=== PATIENT | female | born 1965 | race Two or more races ===

== ENCOUNTER 2021-03-20 21:24 | Inpatient (IN) | payer MEDICAID, OTHER ==
[~2021-03-20] VITALS: Ht 160 cm; Wt 76.0 kg
[2021-03-20] MEDS ORDERED: NOREPINEPHRINE 8 MG/250ML KIT 250 ML IV ONE (21:46)
[2021-03-20 22:08] LABS: Mean Corpuscular Hemoglobin 31.1 pg (28.0-32.0); Mean Corpuscular Hgb Conc. 32.5 g/dL (32.0-36.0); Mean Corpuscular Volume 95.6 fL (80.0-100.0); Platelet Count (auto) 210 10^3/uL (140-450); Red Blood Cells 4.49 10^6/uL (4.0-5.20); Red Cell Distribution Width 14.2 % (11.8-14.3); White Blood Cell 8.6 10^3/uL (4.4-10.8)
[2021-03-20] MEDS ORDERED: levETIRAcetam 500 MG/5ML INJ IV ONE (22:12)
[2021-03-20] MEDS ORDERED: PROPOFOL 100 ML IV ONE (22:16)
[2021-03-20 22:18] LABS: Band Neutrophils % (manual) 0; Basophils % (manual) 0 (0.0-2.0); Blast Cells 0; Metamyelocytes % 0; Myelocytes % 0; Promyelocytes % 0
[2021-03-20 22:21] LABS: Albumin 3.5 g/dL (3.4-5.0); Calcium 8.8 mg/dL (8.5-10.1); Potassium 3.6 mmol/L (3.5-5.1)
[2021-03-20 22:28] LABS: BUN/Creatinine Ratio 16.2; Bilirubin, Total 0.6 mg/dL (0.2-1.0); Total Protein 7.1 g/dL (6.4-8.2)
[2021-03-20 22:33] LABS: INR 1.07 (0.9-1.15); Partial Thromboplastin Time 25.9 sec (23.0-31.2)
[2021-03-20 22:43] LABS: Eosinophils % (manual) 4 (0-7); Lymphocytes % (manual) 75 (10.0-50.0); Monocytes % (manual) 7 (0-12); Reactive Lymphocytes 5
[2021-03-20 22:57] LABS: Urine WBC None Seen /hpf (0 - 5)
[2021-03-20] MEDS ORDERED: fentaNYL CITRATE 5 ML ONE (23:00)
[2021-03-20] MEDS: PROPOFOL 100 ML IV SCH (23:00)
[2021-03-20] MEDS ORDERED: fentaNYL CITRATE 100 MCG/2 ML VL IV ONE (23:00)
[2021-03-20 23:10] LABS: Urine Bacteria FEW /hpf (None Seen); Urine Blood 2+ /uL (Negative); Urine Mucus FEW (None Seen); Urine Specific Gravity 1.007 (1.001-1.035)
[2021-03-20 23:27] LABS: Alcohol, Urine < 3.0 mg/dL (0-10); Amphetamine Screen, Urine NEGATIVE (NEGATIVE); Barbiturate Scree,Urine NEGATIVE (NEGATIVE); Benzodiazephine Screen, Urine NEGATIVE (NEGATIVE); Cannabinoid Screen, Urine NEGATIVE (NEGATIVE); Cocaine Screen, Urine NEGATIVE (NEGATIVE); Opiate Scree,Urine NEGATIVE (NEGATIVE); Phencyclidine Screen, Urine NEGATIVE (NEGATIVE)
[2021-03-21] VITALS (84 sets, daily range): BP systolic 83–120; BP diastolic 28–80
[2021-03-21] MEDS ORDERED: NITROGLYCERIN 0.4 MG SL TAB SL PRN (02:30)
[2021-03-21] MEDS ORDERED: MORPHINE SULF INJ 2 MG/ML SYRINGE 1ML IV PRN (02:30)
[2021-03-21] MEDS ORDERED: ENOXAPARIN SOD 100 MG/1 ML SYRINGE SC ONE (02:30)
[2021-03-21] MEDS ORDERED: ONDANSETRON HCL 4 MG/2 ML VIAL IV PRN (02:30)
[2021-03-21 03:07] LABS: BUN/Creatinine Ratio 18.8; Calcium 8.3 mg/dL (8.5-10.1)
[2021-03-21 03:14] LABS: Potassium 2.9 mmol/L (3.5-5.1)
[2021-03-21] MEDS ORDERED: POTASSIUM CHL 20MEQ/100ML 100 ML IV ONE (03:30)
[2021-03-21 07:15] LABS: Lactic Acid w/Reflex 5.8 mmol/L (0.4-2.0)
[2021-03-21] MEDS: NOREPINEPHRINE 8 MG/250ML KIT 250 ML IV SCH (07:56)
[2021-03-21] MEDS ORDERED: HEPARIN DRIP/D5W 100UNITS/ML 250 ML IV SCH (09:15)
[2021-03-21] MEDS ORDERED: HEPARIN SODIUM (PORCINE) 5000 UNITS/ML 1ML VIAL IV ONE (09:15)
[2021-03-21] MEDS ORDERED: FUROSEMIDE 20 MG/2 ML VIAL IV ONE (09:15)
[2021-03-21 09:25] LABS: Hematocrit 47.3 % (36.0-46.0); Mean Corpuscular Hemoglobin 30.8 pg (28.0-32.0); Mean Corpuscular Hgb Conc. 33.8 g/dL (32.0-36.0); Mean Corpuscular Volume 91.1 fL (80.0-100.0); Platelet Count (auto) 211 10^3/uL (140-450); Red Blood Cells 5.19 10^6/uL (4.0-5.20); Red Cell Distribution Width 13.6 % (11.8-14.3); White Blood Cell 20.3 10^3/uL (4.4-10.8)
[2021-03-21] MEDS ORDERED: OPTISON 3ml Vial for INJ IV ONE (09:27)
[2021-03-21 09:28] LABS: Basophils % (manual) 0 (0.0-2.0); Blast Cells 0; Eosinophils % (manual) 0 (0-7); Metamyelocytes % 0; Myelocytes % 0; Promyelocytes % 0; Reactive Lymphocytes 0
[2021-03-21 09:36] LABS: BUN/Creatinine Ratio 23.6; Calcium 8.4 mg/dL (8.5-10.1); Magnesium 2.2 mg/dL (1.6-2.6); Potassium 3.8 mmol/L (3.5-5.1)
[2021-03-21 10:27] LABS: INR 1.1 (0.9-1.15); Partial Thromboplastin Time 29.3 sec (23.0-31.2)
[2021-03-21 10:47] LABS: Band Neutrophils % (manual) 24; Lymphocytes % (manual) 6 (10.0-50.0); Monocytes % (manual) 4 (0-12)
[2021-03-21] MEDS: PANTOPRAZOLE 40 MG/10 ML VIAL INJ IV SCH (11:07)
[2021-03-21] MEDS: HEPARIN DRIP/D5W 100UNITS/ML 250 ML IV SCH (11:07)
[2021-03-21] MEDS: ASPirin 81 mg TAB PO SCH (11:08)
[2021-03-21] MEDS ORDERED: LORazepam 2MG/ML-1ML VIAL IV PRN (11:30)
[2021-03-21 12:17] LABS: Cholesterol 172 mg/dL (< 200); HDL Cholesterol 40 mg/dL (40-59); LDL Cholesterol 120 mg/dL (< 100); Triglycerides 113 mg/dL (< 150)
[2021-03-21] MEDS ORDERED: cefTRIAXone 1GM/50ML D5W 50 ML IV ONE (13:15)
[2021-03-21] MEDS: SODIUM BICARBONATE 50ML VIAL 50 ML in SOD CHL 0.45% 1,000 ML IV SCH (13:55)
[2021-03-21] MEDS: PROPOFOL 100 ML IV SCH ×2 (13:57→18:53)
[2021-03-21] MEDS: metroNIDAZOLE 500MG/100ML 100 ML IV SCH ×2 (15:09→21:17)
[2021-03-21] MEDS ORDERED: FUROSEMIDE 20 MG/2 ML VIAL IV SCH (18:00)
[2021-03-21 18:17] LABS: INR 1.23 (0.9-1.15)
[2021-03-21 18:20] LABS: Partial Thromboplastin Time > 139.0 sec (23.0-31.2)
[2021-03-22] VITALS (82 sets, daily range): BP systolic 89–131; BP diastolic 39–63
[2021-03-22 01:56] LABS: Albumin 3.5 g/dL (3.4-5.0); Calcium 7.9 mg/dL (8.5-10.1)
[2021-03-22 01:58] LABS: BUN/Creatinine Ratio 27.3
[2021-03-22 01:59] LABS: Lactic Acid w/Reflex 2.7 mmol/L (0.4-2.0)
[2021-03-22 02:02] LABS: Bilirubin, Total 0.8 mg/dL (0.2-1.0); Total Protein 7.2 g/dL (6.4-8.2)
[2021-03-22 02:07] LABS: Potassium 2.9 mmol/L (3.5-5.1)
[2021-03-22 02:10] LABS: INR 1.25 (0.9-1.15)
[2021-03-22 02:14] LABS: Partial Thromboplastin Time > 139.0 sec (23.0-31.2)
[2021-03-22 02:15] LABS: Phosphorus 2.4 mg/dL (2.5-4.90)
[2021-03-22] MEDS ORDERED: POTASSIUM CHL 20MEQ/100ML 100 ML IV ONE (02:45)
[2021-03-22] MEDS: NOREPINEPHRINE 8 MG/250ML KIT 250 ML IV SCH ×2 (04:22→22:30)
[2021-03-22] MEDS: metroNIDAZOLE 500MG/100ML 100 ML IV SCH ×3 (05:28→23:30)
[2021-03-22 07:05] LABS: Basophils # (auto) 0 10 ^3/uL (0-0.2); Basophils % (auto) 0.2 % (0.0-2.0); Eosinophils # (auto) 0 10 ^3/uL (0-0.8); Hematocrit 44.3 % (36.0-46.0); Hemoglobin 15.1 g/dL (12.2-16.2); Lymphocytes # (auto) 1.2 10 ^3/uL (0.4-5.4); Lymphocytes % (auto) 7.9 % (10.0-50.0); Mean Corpuscular Hemoglobin 30.5 pg (28.0-32.0); Mean Corpuscular Hgb Conc. 34.1 g/dL (32.0-36.0); Mean Corpuscular Volume 89.3 fL (80.0-100.0); Monocytes # (auto) 0.6 10 ^3/uL (0-1.3); Monocytes % (auto) 4.1 % (0.0-12.0); Neutrophils # (auto) 13.3 10 ^3/uL (1.6-8.6); Neutrophils % (auto) 87.8 % (37.0-80.0); Nucleated Red Blood Cells % 0.1 %; Platelet Count (auto) 217 10^3/uL (140-450); Red Blood Cells 4.96 10^6/uL (4.0-5.20); White Blood Cell 15.2 10^3/uL (4.4-10.8)
[2021-03-22 07:18] LABS: Albumin 3.3 g/dL (3.4-5.0); Calcium 7.7 mg/dL (8.5-10.1); Potassium 3.1 mmol/L (3.5-5.1)
[2021-03-22 07:20] LABS: BUN/Creatinine Ratio 31.7; Lactic Acid w/Reflex 2.2 mmol/L (0.4-2.0)
[2021-03-22 07:22] LABS: Bilirubin, Total 0.7 mg/dL (0.2-1.0); Total Protein 6.9 g/dL (6.4-8.2)
[2021-03-22] MEDS: cefTRIAXone 1GM/50ML D5W 50 ML IV SCH (09:10)
[2021-03-22 09:22] LABS: INR 1.14 (0.9-1.15); Partial Thromboplastin Time 57.4 sec (23.0-31.2)
[2021-03-22] MEDS ORDERED: ENOXAPARIN SOD 40 MG/0.4 ML SYRINGE SC SCH (10:00)
[2021-03-22] MEDS: ASPirin 81 mg TAB PO SCH (10:00)
[2021-03-22] MEDS: PANTOPRAZOLE 40 MG/10 ML VIAL INJ IV SCH (11:55)
[2021-03-22] MEDS: SODIUM BICARBONATE 50ML VIAL 50 ML in SOD CHL 0.45% 1,000 ML IV SCH (11:56)
[2021-03-22 12:10] LABS: BUN/Creatinine Ratio 28.8; Calcium 7.5 mg/dL (8.5-10.1)
[2021-03-22 12:12] LABS: Potassium 2.9 mmol/L (3.5-5.1)
[2021-03-22 12:20] LABS: Lactic Acid w/Reflex 2.5 mmol/L (0.4-2.0)
[2021-03-22] MEDS: POTASSIUM CHL 20MEQ/100ML 100 ML IV SCH ×4 (12:40→18:58)
[2021-03-22] MEDS: PROPOFOL 100 ML IV SCH (14:37)
[2021-03-22] MEDS: HEPARIN DRIP/D5W 100UNITS/ML 250 ML IV SCH (14:42)
[2021-03-22] MEDS: LACTATED RINGER'S 1,000 ML IV SCH ×2 (14:43→21:46)
[2021-03-22] MEDS ORDERED: IOHEXOL 350 MG/ML 100ML IJ ONE (15:11)
[2021-03-22 15:40] LABS: INR 1.15 (0.9-1.15); Partial Thromboplastin Time 41.6 sec (23.0-31.2)
[2021-03-22] MEDS: fentaNYL Drip 2500mCg/250mlNS 250 ML IV SCH (16:35)
[2021-03-22] MEDS ORDERED: LACTATED RINGER'S 2,050 ML IV ONE ×2 (19:00→19:15)
[2021-03-22] MEDS: ACETYLCYSTEINE ORAL for CIN 20%(200MG/ML) 4ML PO SCH (23:30)
[2021-03-23] VITALS (70 sets, daily range): BP systolic 99–130; BP diastolic 48–74
[2021-03-23 00:42] LABS: INR 1.24 (0.9-1.15); Partial Thromboplastin Time 50.6 sec (23.0-31.2)
[2021-03-23 00:44] LABS: BUN/Creatinine Ratio 22.2; Calcium 7.4 mg/dL (8.5-10.1); Magnesium 1.7 mg/dL (1.6-2.6)
[2021-03-23] MEDS: metroNIDAZOLE 500MG/100ML 100 ML IV SCH ×3 (06:35→22:00)
[2021-03-23 06:43] LABS: Basophils # (auto) 0 10 ^3/uL (0-0.2); Basophils % (auto) 0.2 % (0.0-2.0); Eosinophils # (auto) 0 10 ^3/uL (0-0.8); Hematocrit 35.5 % (36.0-46.0); Hemoglobin 12.4 g/dL (12.2-16.2); Lymphocytes # (auto) 1.1 10 ^3/uL (0.4-5.4); Lymphocytes % (auto) 10.2 % (10.0-50.0); Mean Corpuscular Hemoglobin 31.1 pg (28.0-32.0); Monocytes # (auto) 0.5 10 ^3/uL (0-1.3); Monocytes % (auto) 4.4 % (0.0-12.0); Neutrophils # (auto) 9.5 10 ^3/uL (1.6-8.6); Neutrophils % (auto) 85.2 % (37.0-80.0); Platelet Count (auto) 131 10^3/uL (140-450); Red Blood Cells 3.99 10^6/uL (4.0-5.20); Red Cell Distribution Width 13.9 % (11.8-14.3); White Blood Cell 11.2 10^3/uL (4.4-10.8)
[2021-03-23 06:57] LABS: INR 1.24 (0.9-1.15); Partial Thromboplastin Time 48.8 sec (23.0-31.2)
[2021-03-23 07:04] LABS: Calcium 7.3 mg/dL (8.5-10.1); Magnesium 1.7 mg/dL (1.6-2.6); Potassium 3.4 mmol/L (3.5-5.1)
[2021-03-23] MEDS: PANTOPRAZOLE 40 MG/10 ML VIAL INJ IV SCH (10:53)
[2021-03-23] MEDS: ASPirin 81 mg TAB PO SCH (10:53)
[2021-03-23] MEDS: cefTRIAXone 1GM/50ML D5W 50 ML IV SCH (10:54)
[2021-03-23] MEDS: LACTATED RINGER'S 1,000 ML IV SCH (10:55)
[2021-03-23] MEDS: PROPOFOL 100 ML IV SCH (13:15)
[2021-03-23] MEDS ORDERED: POTASSIUM EFFERVESENT TAB 25 MEQ GT ONE (13:45)
[2021-03-23] MEDS: fentaNYL Drip 2500mCg/250mlNS 250 ML IV SCH (14:15)
[2021-03-23] MEDS: MAGNESIUM SULFATE 1GM/100ML 100 ML IV SCH ×2 (14:58→16:57)
[2021-03-23] MEDS ORDERED: EPINEPHrine HCL 1 MG/10 ML SYRG IV ONE (18:23)
[2021-03-23] MEDS: ACETYLCYSTEINE ORAL for CIN 20%(200MG/ML) 4ML PO SCH (22:00)
[2021-03-23] MEDS: NOREPINEPHRINE 8 MG/250ML KIT 250 ML IV SCH (22:30)
[2021-03-24] VITALS (70 sets, daily range): BP systolic 127–166; BP diastolic 48–107
[2021-03-24 04:04] LABS: Basophils # (auto) 0 10 ^3/uL (0-0.2); Basophils % (auto) 0.2 % (0.0-2.0); Eosinophils # (auto) 0 10 ^3/uL (0-0.8); Eosinophils % (auto) 0.1 % (0.0-7.0); Hematocrit 34.3 % (36.0-46.0); Hemoglobin 11.9 g/dL (12.2-16.2); Lymphocytes # (auto) 1.1 10 ^3/uL (0.4-5.4); Lymphocytes % (auto) 10.5 % (10.0-50.0); Mean Corpuscular Hgb Conc. 34.8 g/dL (32.0-36.0); Mean Corpuscular Volume 89.2 fL (80.0-100.0); Monocytes # (auto) 0.5 10 ^3/uL (0-1.3); Monocytes % (auto) 5.3 % (0.0-12.0); Neutrophils # (auto) 8.5 10 ^3/uL (1.6-8.6); Neutrophils % (auto) 83.9 % (37.0-80.0); Platelet Count (auto) 135 10^3/uL (140-450); Red Blood Cells 3.85 10^6/uL (4.0-5.20); Red Cell Distribution Width 14.2 % (11.8-14.3); White Blood Cell 10.2 10^3/uL (4.4-10.8)
[2021-03-24 04:22] LABS: BUN/Creatinine Ratio 16.1; Calcium 8.2 mg/dL (8.5-10.1); Potassium 3.3 mmol/L (3.5-5.1)
[2021-03-24] MEDS: metroNIDAZOLE 500MG/100ML 100 ML IV SCH ×3 (06:00→22:00)
[2021-03-24] MEDS: LACTATED RINGER'S 1,000 ML IV SCH (06:15)
[2021-03-24] MEDS: cefTRIAXone 1GM/50ML D5W 50 ML IV SCH (09:07)
[2021-03-24] MEDS: PANTOPRAZOLE 40 MG/10 ML VIAL INJ IV SCH (10:00)
[2021-03-24] MEDS: ACETYLCYSTEINE ORAL for CIN 20%(200MG/ML) 4ML PO SCH (10:00)
[2021-03-24] MEDS: PROPOFOL 100 ML IV SCH (15:00)
[2021-03-24] MEDS: POTASSIUM CHL 20MEQ/100ML 100 ML IV SCH ×2 (17:15→17:42)
[2021-03-24] MEDS: D5W 5% 1,000 ML IV SCH (17:42)
[2021-03-24] MEDS: fentaNYL Drip 2500mCg/250mlNS 250 ML IV SCH (18:02)
[2021-03-24] MEDS: FREE WATER GT SCH (18:05)
[2021-03-25] VITALS (56 sets, daily range): BP systolic 111–174; BP diastolic 43–85
[2021-03-25 06:10] LABS: Basophils # (auto) 0 10 ^3/uL (0-0.2); Basophils % (auto) 0.5 % (0.0-2.0); Eosinophils # (auto) 0.1 10 ^3/uL (0-0.8); Eosinophils % (auto) 1.4 % (0.0-7.0); Hemoglobin 13.4 g/dL (12.2-16.2); Lymphocytes # (auto) 1.8 10 ^3/uL (0.4-5.4); Lymphocytes % (auto) 22.7 % (10.0-50.0); Mean Corpuscular Hemoglobin 31.3 pg (28.0-32.0); Mean Corpuscular Hgb Conc. 34.5 g/dL (32.0-36.0); Mean Corpuscular Volume 90.7 fL (80.0-100.0); Monocytes # (auto) 0.7 10 ^3/uL (0-1.3); Monocytes % (auto) 8.6 % (0.0-12.0); Neutrophils # (auto) 5.3 10 ^3/uL (1.6-8.6); Neutrophils % (auto) 66.8 % (37.0-80.0); Nucleated Red Blood Cells % 0.2 %; Platelet Count (auto) 155 10^3/uL (140-450); Red Cell Distribution Width 14.3 % (11.8-14.3); White Blood Cell 7.9 10^3/uL (4.4-10.8)
[2021-03-25] MEDS: D5W 5% 1,000 ML IV SCH (06:25)
[2021-03-25] MEDS: FREE WATER GT SCH ×5 (06:26→22:21)
[2021-03-25] MEDS: metroNIDAZOLE 500MG/100ML 100 ML IV SCH ×3 (06:28→22:13)
[2021-03-25 06:33] LABS: BUN/Creatinine Ratio 14.1; Calcium 8.9 mg/dL (8.5-10.1); Potassium 3.1 mmol/L (3.5-5.1)
[2021-03-25] MEDS: cefTRIAXone 1GM/50ML D5W 50 ML IV SCH ×2 (09:10→09:14)
[2021-03-25] MEDS: PANTOPRAZOLE 40 MG/10 ML VIAL INJ IV SCH (09:14)
[2021-03-25 14:36] LABS: Calcium 8.8 mg/dL (8.5-10.1)
[2021-03-25 14:37] LABS: BUN/Creatinine Ratio 12.5
[2021-03-25 14:41] LABS: Potassium 2.8 mmol/L (3.5-5.1)
[2021-03-25] MEDS: POTASSIUM CHL 20MEQ/100ML 100 ML IV SCH ×3 (15:25→19:49)
[2021-03-25] MEDS: POTASSIUM CHLORIDE 40 MEQ in D5W 5% 1,000 ML IV SCH ×2 (15:31→22:26)
[2021-03-25] MEDS ORDERED: D5W 5% 1,000 ML IV SCH (15:41)
[2021-03-25] MEDS: fentaNYL Drip 2500mCg/250mlNS 250 ML IV SCH (19:20)
[2021-03-25] MEDS: PROPOFOL 100 ML IV SCH (19:37)
[2021-03-25] MEDS: NOREPINEPHRINE 8 MG/250ML KIT 250 ML IV SCH (19:52)
[2021-03-25] MEDS: SENNA 8.6 MG TAB PO SCH (22:12)
[2021-03-26] VITALS (98 sets, daily range): BP systolic 55–147; BP diastolic 30–80
[2021-03-26] MEDS: NOREPINEPHRINE 8 MG/250ML KIT 250 ML IV SCH ×2 (03:40→20:19)
[2021-03-26 04:01] LABS: Basophils # (auto) 0 10 ^3/uL (0-0.2); Basophils % (auto) 0.2 % (0.0-2.0); Eosinophils # (auto) 0.1 10 ^3/uL (0-0.8); Eosinophils % (auto) 1.5 % (0.0-7.0); Hematocrit 35.3 % (36.0-46.0); Hemoglobin 11.9 g/dL (12.2-16.2); Lymphocytes # (auto) 1.2 10 ^3/uL (0.4-5.4); Lymphocytes % (auto) 22.2 % (10.0-50.0); Mean Corpuscular Hemoglobin 30.9 pg (28.0-32.0); Mean Corpuscular Hgb Conc. 33.7 g/dL (32.0-36.0); Mean Corpuscular Volume 91.7 fL (80.0-100.0); Monocytes # (auto) 0.4 10 ^3/uL (0-1.3); Monocytes % (auto) 7.8 % (0.0-12.0); Neutrophils # (auto) 3.7 10 ^3/uL (1.6-8.6); Neutrophils % (auto) 68.3 % (37.0-80.0); Nucleated Red Blood Cells % 0.1 %; Platelet Count (auto) 111 10^3/uL (140-450); Red Blood Cells 3.85 10^6/uL (4.0-5.20); Red Cell Distribution Width 14.3 % (11.8-14.3); White Blood Cell 5.5 10^3/uL (4.4-10.8)
[2021-03-26 04:21] LABS: Calcium 7.8 mg/dL (8.5-10.1); Potassium 3.7 mmol/L (3.5-5.1)
[2021-03-26 04:22] LABS: BUN/Creatinine Ratio 16.4
[2021-03-26] MEDS: POTASSIUM CHLORIDE 40 MEQ in D5W 5% 1,000 ML IV SCH ×3 (05:00→20:18)
[2021-03-26] MEDS: metroNIDAZOLE 500MG/100ML 100 ML IV SCH ×3 (05:35→21:21)
[2021-03-26] MEDS: FREE WATER GT SCH ×4 (06:11→21:22)
[2021-03-26] MEDS: PANTOPRAZOLE 40 MG/10 ML VIAL INJ IV SCH (10:21)
[2021-03-26] MEDS: fentaNYL Drip 2500mCg/250mlNS 250 ML IV SCH (14:15)
[2021-03-26] MEDS: DESMOPRESSIN ACET 4 MCG/1 ML AMPULE IV SCH ×2 (15:20→21:21)
[2021-03-26] MEDS: PROPOFOL 100 ML IV SCH (21:22)
[2021-03-26] MEDS: SENNA 8.6 MG TAB PO SCH (21:22)
[2021-03-27] VITALS (76 sets, daily range): BP systolic 76–185; BP diastolic 34–126
[2021-03-27] MEDS: POTASSIUM CHLORIDE 40 MEQ in D5W 5% 1,000 ML IV SCH (03:44)
[2021-03-27 04:53] LABS: Hematocrit 33.1 % (36.0-46.0); Mean Corpuscular Hemoglobin 30.9 pg (28.0-32.0); Mean Corpuscular Hgb Conc. 33.3 g/dL (32.0-36.0); Mean Corpuscular Volume 92.9 fL (80.0-100.0); Platelet Count (auto) 71 10^3/uL (140-450); Red Blood Cells 3.57 10^6/uL (4.0-5.20); Red Cell Distribution Width 14.8 % (11.8-14.3); White Blood Cell 12.6 10^3/uL (4.4-10.8)
[2021-03-27 05:18] LABS: Potassium 5.1 mmol/L (3.5-5.1)
[2021-03-27 05:19] LABS: Basophils % (manual) 0 (0.0-2.0); Blast Cells 0; Metamyelocytes % 0; Myelocytes % 0; Promyelocytes % 0; Reactive Lymphocytes 0
[2021-03-27 05:26] LABS: BUN/Creatinine Ratio 13.6; Calcium 7.1 mg/dL (8.5-10.1)
[2021-03-27] MEDS: FREE WATER GT SCH ×4 (05:38→21:48)
[2021-03-27] MEDS: metroNIDAZOLE 500MG/100ML 100 ML IV SCH ×3 (05:38→21:47)
[2021-03-27 05:50] LABS: Band Neutrophils % (manual) 5; Eosinophils % (manual) 5 (0-7); Lymphocytes % (manual) 16 (10.0-50.0); Monocytes % (manual) 5 (0-12)
[2021-03-27] MEDS: cefTRIAXone 1GM/50ML D5W 50 ML IV SCH (09:00)
[2021-03-27] MEDS: PANTOPRAZOLE 40 MG/10 ML VIAL INJ IV SCH (10:00)
[2021-03-27] MEDS: fentaNYL Drip 2500mCg/250mlNS 250 ML IV SCH (14:15)
[2021-03-27] MEDS ORDERED: Jevity 1.2 Cal/Fiber 1 Liter GT SCH (14:45)
[2021-03-27] MEDS ORDERED: ENOXAPARIN SOD 80 MG/0.8ML SYRINGE SC ONE (18:15)
[2021-03-27] MEDS ORDERED: ENOXAPARIN SOD 150 MG/1 ML SYRINGE SC ONE (18:15)
[2021-03-27] MEDS: PROPOFOL 100 ML IV SCH (21:47)
[2021-03-27] MEDS: SENNA 8.6 MG TAB PO SCH (21:47)
[2021-03-28] VITALS (105 sets, daily range): BP systolic 11–129; BP diastolic 12–72
[2021-03-28] MEDS: NOREPINEPHRINE 8 MG/250ML KIT 250 ML IV SCH ×2 (00:06→23:11)
[2021-03-28 04:25] LABS: Basophils # (auto) 0 10 ^3/uL (0-0.2); Basophils % (auto) 0.3 % (0.0-2.0); Eosinophils # (auto) 0.5 10 ^3/uL (0-0.8); Hematocrit 29.7 % (36.0-46.0); Lymphocytes # (auto) 2.9 10 ^3/uL (0.4-5.4); Lymphocytes % (auto) 22.2 % (10.0-50.0); Mean Corpuscular Hemoglobin 30.6 pg (28.0-32.0); Mean Corpuscular Hgb Conc. 33.7 g/dL (32.0-36.0); Mean Corpuscular Volume 90.7 fL (80.0-100.0); Monocytes # (auto) 0.4 10 ^3/uL (0-1.3); Monocytes % (auto) 3.2 % (0.0-12.0); Neutrophils # (auto) 9.2 10 ^3/uL (1.6-8.6); Neutrophils % (auto) 70.3 % (37.0-80.0); Nucleated Red Blood Cells % 0.4 %; Platelet Count (auto) 84 10^3/uL (140-450); Red Blood Cells 3.28 10^6/uL (4.0-5.20); White Blood Cell 13.1 10^3/uL (4.4-10.8)
[2021-03-28 04:41] LABS: BUN/Creatinine Ratio 18.7; Calcium 7.8 mg/dL (8.5-10.1); Potassium 3.7 mmol/L (3.5-5.1)
[2021-03-28] MEDS: FREE WATER GT SCH ×4 (05:49→23:11)
[2021-03-28] MEDS: metroNIDAZOLE 500MG/100ML 100 ML IV SCH ×3 (05:49→21:36)
[2021-03-28] MEDS: cefTRIAXone 1GM/50ML D5W 50 ML IV SCH (09:00)
[2021-03-28] MEDS: PANTOPRAZOLE 40 MG/10 ML VIAL INJ IV SCH (09:40)
[2021-03-28] MEDS: ENOXAPARIN SOD 80 MG/0.8ML SYRINGE SC SCH ×2 (09:40→21:36)
[2021-03-28] MEDS ORDERED: ENOXAPARIN SOD 150 MG/1 ML SYRINGE SC SCH (10:00)
[2021-03-28] MEDS: fentaNYL Drip 2500mCg/250mlNS 250 ML IV SCH (14:15)
[2021-03-28] MEDS: SENNA 8.6 MG TAB PO SCH (21:36)
[2021-03-28] MEDS: DESMOPRESSIN ACET 4 MCG/1 ML AMPULE IV SCH (21:36)
[2021-03-28] MEDS: PROPOFOL 100 ML IV SCH (22:30)
[2021-03-29] VITALS (101 sets, daily range): BP systolic 81–173; BP diastolic 33–95
[2021-03-29] MEDS: NOREPINEPHRINE 8 MG/250ML KIT 250 ML IV SCH ×4 (03:04→17:42)
[2021-03-29 03:51] LABS: Basophils # (auto) 0 10 ^3/uL (0-0.2); Basophils % (auto) 0.3 % (0.0-2.0); Eosinophils # (auto) 0.4 10 ^3/uL (0-0.8); Eosinophils % (auto) 2.6 % (0.0-7.0); Hematocrit 28.6 % (36.0-46.0); Hemoglobin 9.8 g/dL (12.2-16.2); Lymphocytes # (auto) 2.5 10 ^3/uL (0.4-5.4); Lymphocytes % (auto) 17.4 % (10.0-50.0); Mean Corpuscular Hemoglobin 31.3 pg (28.0-32.0); Mean Corpuscular Hgb Conc. 34.3 g/dL (32.0-36.0); Mean Corpuscular Volume 91.3 fL (80.0-100.0); Monocytes # (auto) 0.6 10 ^3/uL (0-1.3); Monocytes % (auto) 3.8 % (0.0-12.0); Neutrophils % (auto) 75.9 % (37.0-80.0); Nucleated Red Blood Cells % 0.1 %; Platelet Count (auto) 123 10^3/uL (140-450); Red Blood Cells 3.13 10^6/uL (4.0-5.20); Red Cell Distribution Width 14.2 % (11.8-14.3); White Blood Cell 14.6 10^3/uL (4.4-10.8)
[2021-03-29 04:22] LABS: Calcium 8.2 mg/dL (8.5-10.1)
[2021-03-29] MEDS: FREE WATER GT SCH ×4 (06:00→23:51)
[2021-03-29] MEDS: metroNIDAZOLE 500MG/100ML 100 ML IV SCH ×3 (06:30→21:37)
[2021-03-29] MEDS: DESMOPRESSIN ACET 4 MCG/1 ML AMPULE IV SCH ×2 (11:28→21:58)
[2021-03-29] MEDS: cefTRIAXone 1GM/50ML D5W 50 ML IV SCH (11:28)
[2021-03-29] MEDS: ENOXAPARIN SOD 80 MG/0.8ML SYRINGE SC SCH ×2 (11:28→21:38)
[2021-03-29] MEDS: PANTOPRAZOLE 40 MG/10 ML VIAL INJ IV SCH (11:28)
[2021-03-29] MEDS: fentaNYL Drip 2500mCg/250mlNS 250 ML IV SCH (12:09)
[2021-03-29] MEDS: SENNA 8.6 MG TAB PO SCH (21:37)
[2021-03-29] MEDS: PROPOFOL 100 ML IV SCH (22:30)
[2021-03-30] VITALS (106 sets, daily range): BP systolic 79–139; BP diastolic 27–79
[2021-03-30] MEDS: metroNIDAZOLE 500MG/100ML 100 ML IV SCH ×3 (05:34→21:44)
[2021-03-30] MEDS: FREE WATER GT SCH ×3 (05:34→17:34)
[2021-03-30] MEDS: ENOXAPARIN SOD 80 MG/0.8ML SYRINGE SC SCH ×2 (09:58→21:44)
[2021-03-30] MEDS: PANTOPRAZOLE 40 MG/10 ML VIAL INJ IV SCH (09:58)
[2021-03-30] MEDS: cefTRIAXone 1GM/50ML D5W 50 ML IV SCH (09:58)
[2021-03-30] MEDS: DESMOPRESSIN ACET 4 MCG/1 ML AMPULE IV SCH ×2 (10:59→22:00)
[2021-03-30] MEDS: fentaNYL Drip 2500mCg/250mlNS 250 ML IV SCH (12:58)
[2021-03-30] MEDS: IPRATROPIUM BROM 0.5 MG/2.5ML INH SOL NEB SCH (18:15)
[2021-03-30] MEDS: ALBUTEROL SULF 2.5 MG/0.5ML(0.5%) NEB SOLN NEB SCH (18:15)
[2021-03-30] MEDS: NOREPINEPHRINE 8 MG/250ML KIT 250 ML IV SCH (19:51)
[2021-03-30] MEDS: SENNA 8.6 MG TAB PO SCH (21:43)
[2021-03-30] MEDS: PROPOFOL 100 ML IV SCH (22:30)
[2021-03-31] VITALS (105 sets, daily range): BP systolic 81–133; BP diastolic 35–77
[2021-03-31] MEDS: ALBUTEROL SULF 2.5 MG/0.5ML(0.5%) NEB SOLN NEB SCH ×5 (00:09→23:55)
[2021-03-31] MEDS: IPRATROPIUM BROM 0.5 MG/2.5ML INH SOL NEB SCH ×5 (00:09→23:55)
[2021-03-31] MEDS: FREE WATER GT SCH ×4 (00:13→18:00)
[2021-03-31 04:04] LABS: Basophils # (auto) 0 10 ^3/uL (0-0.2); Basophils % (auto) 0.1 % (0.0-2.0); Eosinophils # (auto) 0.1 10 ^3/uL (0-0.8); Eosinophils % (auto) 1.2 % (0.0-7.0); Hematocrit 26.7 % (36.0-46.0); Hemoglobin 9.1 g/dL (12.2-16.2); Lymphocytes # (auto) 1.8 10 ^3/uL (0.4-5.4); Lymphocytes % (auto) 15.7 % (10.0-50.0); Mean Corpuscular Hgb Conc. 34.3 g/dL (32.0-36.0); Mean Corpuscular Volume 90.6 fL (80.0-100.0); Monocytes # (auto) 0.5 10 ^3/uL (0-1.3); Monocytes % (auto) 4.2 % (0.0-12.0); Neutrophils # (auto) 9.1 10 ^3/uL (1.6-8.6); Neutrophils % (auto) 78.8 % (37.0-80.0); Nucleated Red Blood Cells % 0.6 %; Platelet Count (auto) 108 10^3/uL (140-450); Red Blood Cells 2.94 10^6/uL (4.0-5.20); Red Cell Distribution Width 14.4 % (11.8-14.3); White Blood Cell 11.6 10^3/uL (4.4-10.8)
[2021-03-31 04:16] LABS: BUN/Creatinine Ratio 13.4; Calcium 8.3 mg/dL (8.5-10.1)
[2021-03-31 04:31] LABS: Potassium 2.7 mmol/L (3.5-5.1)
[2021-03-31] MEDS ORDERED: POTASSIUM CHL 20MEQ/100ML 100 ML IV ONE (05:03)
[2021-03-31] MEDS: POTASSIUM CHL 20MEQ/100ML 100 ML IV SCH ×2 (05:22→07:28)
[2021-03-31] MEDS: NOREPINEPHRINE 8 MG/250ML KIT 250 ML IV SCH ×2 (05:23→23:00)
[2021-03-31] MEDS: metroNIDAZOLE 500MG/100ML 100 ML IV SCH ×3 (05:49→22:12)
[2021-03-31] MEDS: cefTRIAXone 1GM/50ML D5W 50 ML IV SCH ×3 (09:00→10:30)
[2021-03-31] MEDS: DESMOPRESSIN ACET 4 MCG/1 ML AMPULE IV SCH ×2 (10:00→22:11)
[2021-03-31] MEDS: ENOXAPARIN SOD 80 MG/0.8ML SYRINGE SC SCH ×2 (10:15→22:12)
[2021-03-31] MEDS: PANTOPRAZOLE 40 MG/10 ML VIAL INJ IV SCH (10:15)
[2021-03-31] MEDS ORDERED: POTASSIUM EFFERVESENT TAB 25 MEQ GT ONE (12:15)
[2021-03-31] MEDS: fentaNYL Drip 2500mCg/250mlNS 250 ML IV SCH (14:15)
[2021-03-31] MEDS: ARTIFICIAL TEAR OPTH(EYE) OINT 3.5GM EACHEYE SCH (22:10)
[2021-03-31] MEDS: SENNA 8.6 MG TAB PO SCH (22:12)
[2021-03-31] MEDS: PROPOFOL 100 ML IV SCH (22:30)
[2021-04-01] VITALS (105 sets, daily range): BP systolic 103–131; BP diastolic 41–70
[2021-04-01 04:06] LABS: BUN/Creatinine Ratio 9.9; Calcium 8.1 mg/dL (8.5-10.1); Magnesium 2.2 mg/dL (1.6-2.6); Potassium 3.2 mmol/L (3.5-5.1)
[2021-04-01] MEDS: FREE WATER GT SCH ×5 (05:45→23:39)
[2021-04-01] MEDS: metroNIDAZOLE 500MG/100ML 100 ML IV SCH ×3 (05:45→22:16)
[2021-04-01] MEDS: ALBUTEROL SULF 2.5 MG/0.5ML(0.5%) NEB SOLN NEB SCH ×3 (06:26→18:25)
[2021-04-01] MEDS: IPRATROPIUM BROM 0.5 MG/2.5ML INH SOL NEB SCH ×3 (06:26→18:25)
[2021-04-01] MEDS: NOREPINEPHRINE 8 MG/250ML KIT 250 ML IV SCH (07:07)
[2021-04-01] MEDS: ARTIFICIAL TEAR OPTH(EYE) OINT 3.5GM EACHEYE SCH ×2 (10:00→22:16)
[2021-04-01] MEDS: DESMOPRESSIN ACET 4 MCG/1 ML AMPULE IV SCH ×2 (10:30→22:16)
[2021-04-01] MEDS: PANTOPRAZOLE 40 MG/10 ML VIAL INJ IV SCH (10:30)
[2021-04-01] MEDS: ENOXAPARIN SOD 80 MG/0.8ML SYRINGE SC SCH ×2 (10:31→22:16)
[2021-04-01] MEDS ORDERED: POTASSIUM EFFERVESENT TAB 25 MEQ GT ONE (13:30)
[2021-04-01] MEDS: fentaNYL Drip 2500mCg/250mlNS 250 ML IV SCH (14:15)
[2021-04-01] MEDS: SENNA 8.6 MG TAB PO SCH (22:16)
[2021-04-01] MEDS: PROPOFOL 100 ML IV SCH (22:30)
[2021-04-02] VITALS (95 sets, daily range): BP systolic 92–125; BP diastolic 33–74
[2021-04-02] MEDS: ALBUTEROL SULF 2.5 MG/0.5ML(0.5%) NEB SOLN NEB SCH ×4 (00:04→18:04)
[2021-04-02] MEDS: IPRATROPIUM BROM 0.5 MG/2.5ML INH SOL NEB SCH ×4 (00:04→18:04)
[2021-04-02] MEDS: metroNIDAZOLE 500MG/100ML 100 ML IV SCH ×3 (06:46→22:09)
[2021-04-02] MEDS: FREE WATER GT SCH ×3 (06:47→17:18)
[2021-04-02] MEDS: cefTRIAXone 1GM/50ML D5W 50 ML IV SCH (09:23)
[2021-04-02] MEDS: DESMOPRESSIN ACET 4 MCG/1 ML AMPULE IV SCH ×2 (09:24→22:10)
[2021-04-02] MEDS: ENOXAPARIN SOD 80 MG/0.8ML SYRINGE SC SCH ×2 (09:25→22:09)
[2021-04-02] MEDS: PANTOPRAZOLE 40 MG/10 ML VIAL INJ IV SCH (09:25)
[2021-04-02] MEDS: NOREPINEPHRINE 8 MG/250ML KIT 250 ML IV SCH (11:51)
[2021-04-02] MEDS: ARTIFICIAL TEAR OPTH(EYE) OINT 3.5GM EACHEYE SCH ×2 (13:12→22:00)
[2021-04-02] MEDS: fentaNYL Drip 2500mCg/250mlNS 250 ML IV SCH (14:15)
[2021-04-02] MEDS ORDERED: LORazepam 2MG/ML-1ML VIAL IV PRN (17:45)
[2021-04-02] MEDS ORDERED: MORPHINE SULF INJ 2 MG/ML SYRINGE 1ML IV PRN (17:45)
[2021-04-02] MEDS: SENNA 8.6 MG TAB PO SCH (22:08)
[2021-04-02] MEDS: PROPOFOL 100 ML IV SCH (22:30)
[2021-04-03] VITALS (80 sets, daily range): BP systolic 60–111; BP diastolic 25–58
[2021-04-03] MEDS: IPRATROPIUM BROM 0.5 MG/2.5ML INH SOL NEB SCH ×4 (00:18→18:36)
[2021-04-03] MEDS: ALBUTEROL SULF 2.5 MG/0.5ML(0.5%) NEB SOLN NEB SCH ×4 (00:18→18:36)
[2021-04-03] MEDS: NOREPINEPHRINE 8 MG/250ML KIT 250 ML IV SCH ×2 (01:21→10:18)
[2021-04-03 03:52] LABS: Basophils # (auto) 0 10 ^3/uL (0-0.2); Basophils % (auto) 0.4 % (0.0-2.0); Eosinophils # (auto) 0.2 10 ^3/uL (0-0.8); Eosinophils % (auto) 2.8 % (0.0-7.0); Hematocrit 24.6 % (36.0-46.0); Hemoglobin 8.5 g/dL (12.2-16.2); Lymphocytes # (auto) 1.1 10 ^3/uL (0.4-5.4); Lymphocytes % (auto) 15.4 % (10.0-50.0); Mean Corpuscular Hemoglobin 31.5 pg (28.0-32.0); Mean Corpuscular Hgb Conc. 34.6 g/dL (32.0-36.0); Mean Corpuscular Volume 91.1 fL (80.0-100.0); Monocytes # (auto) 0.3 10 ^3/uL (0-1.3); Monocytes % (auto) 3.9 % (0.0-12.0); Neutrophils # (auto) 5.6 10 ^3/uL (1.6-8.6); Neutrophils % (auto) 77.5 % (37.0-80.0); Nucleated Red Blood Cells % 2.6 %; Platelet Count (auto) 115 10^3/uL (140-450); White Blood Cell 7.3 10^3/uL (4.4-10.8)
[2021-04-03 04:24] LABS: BUN/Creatinine Ratio 17.2; Calcium 8.8 mg/dL (8.5-10.1); Potassium 3.3 mmol/L (3.5-5.1)
[2021-04-03] MEDS: metroNIDAZOLE 500MG/100ML 100 ML IV SCH (05:43)
[2021-04-03] MEDS: FREE WATER GT SCH ×4 (05:43→15:59)
[2021-04-03] MEDS: DESMOPRESSIN ACET 4 MCG/1 ML AMPULE IV SCH (10:00)
[2021-04-03] MEDS: ARTIFICIAL TEAR OPTH(EYE) OINT 3.5GM EACHEYE SCH (10:18)
[2021-04-03] MEDS: ENOXAPARIN SOD 80 MG/0.8ML SYRINGE SC SCH (10:57)
[2021-04-03] MEDS: PANTOPRAZOLE 40 MG/10 ML VIAL INJ IV SCH (10:57)
[2021-04-03] MEDS: cefTRIAXone 1GM/50ML D5W 50 ML IV SCH (10:57)
[2021-04-03] MEDS: fentaNYL Drip 2500mCg/250mlNS 250 ML IV SCH (14:15)
== END 2021-04-03 22:58 | DRG 190 ==
LOC: EDBD 21:24 → ER 21:24 → TELE 03-21 02:30 → ICU WEST 03-21 03:22
PROVIDERS: ADMIT Nurse Practitioner; ATTEND Internal Medicine
PROC: 06HY33Z Insertion of Infusion Device into Lower Vein, Percutaneous Approach (ICD-10-PCS; 2021-03-20)
PROC: 5A1955Z Respiratory Ventilation, Greater than 96 Consecutive Hours (ICD-10-PCS; principal; 2021-03-21)
PROC: 0BH17EZ Insertion of Endotracheal Airway into Trachea, Via Natural or Artificial Opening (ICD-10-PCS; 2021-03-21)
PROC: 5A12012 Performance of Cardiac Output, Single, Manual (ICD-10-PCS; 2021-03-21)
PROC: 06HY33Z Insertion of Infusion Device into Lower Vein, Percutaneous Approach (ICD-10-PCS; 2021-03-27)
DX: I21.4 Non-ST elevation (NSTEMI) myocardial infarction (principal); G93.6 Cerebral edema; I46.9 Cardiac arrest, cause unspecified; J96.00 Acute respiratory failure, unspecified whether with hypoxia or hypercapnia; K72.00 Acute and subacute hepatic failure without coma; J69.0 Pneumonitis due to inhalation of food and vomit; G93.1 Anoxic brain damage, not elsewhere classified; Z66 Do not resuscitate; E87.0 Hyperosmolality and hypernatremia; E87.2 Acidosis; I82.412 Acute embolism and thrombosis of left femoral vein; I82.432 Acute embolism and thrombosis of left popliteal vein; G40.409 Other generalized epilepsy and epileptic syndromes, not intractable, without status epilepticus; E87.6 Hypokalemia; Z20.822 Contact with and (suspected) exposure to COVID-19; I25.10 Atherosclerotic heart disease of native coronary artery without angina pectoris; N19 Unspecified kidney failure; H57.04 Mydriasis; Z79.899 Other long term (current) drug therapy
CPT/HCPCS: 36415; 36556; 36600; 70450; 71045; 71275; 72125; 80048; 80053; 80061; 80307; 81001; 82550; 82805; 83036; 83605; 83615; 83735; 83880; 84100; 84443; 84484; 85007; 85025; 85027; 85379; 85610; 85730; 87040; 87070; 87081; 87205; 87426; 92950; 93005; 93306; 93970; 93971; 94002; 94003; 94640; 95819; 96361; 96365; 96375; 99291; C9113; G0378; J0696; J2704; J3480; J3490; J7060; Q9956